=== PATIENT | male | born 1955 | race American Indian/Alaskan Native ===

== ENCOUNTER 2020-12-02 20:59 | Observation (INO) | payer MEDICARE ==
[2020-12-03 00:01] LABS: Basophils % (Auto) 0.3 % (0.0-1.8); Eosinophils % (Auto) 0.5 % (0.0-4.3); Hematocrit 38.2 % (35.5-45.6); Hemoglobin 12.6 gm/dl (11.8-15.2); Lymphocytes # (Auto) 0.6 K/mm3 (1.2-5.4); Lymphocytes % (Auto) 10.1 % (13.4-35.0); Mean Corpuscular HGB Conc 33 % (32-34); Mean Corpuscular Volume 88 fl (84-94); Monocytes # (Auto) 0.4 K/mm3 (0.0-0.8); Monocytes % (Auto) 6.8 % (0.0-7.3); Platelet Count 191 K/mm3 (140-440); Red Blood Count 4.37 M/mm3 (3.65-5.03); Red Cell Distribution Width 14.5 % (13.2-15.2)
[2020-12-03 00:12] LABS: Calcium 9.2 mg/dL (8.4-10.2)
--- NOTE | 2020-12-03 03:13 | Emergency Department Report ---
ED GI Bleed HPI - General Chief complaint: GI Bleed Stated complaint: WEAKNESS/BLOODY STOOL Time Seen by Provider: 12/03/20 03:01 Source: patient, EMS Mode of arrival: Wheelchair Limitations: No Limitations - History of Present Illness Initial comments: Patient is a 65-year-old male who presents emergency room with complaints of lightheadedness, weakness and GI bleed. Patient states she has gross blood and blood clots coming from his rectum. Patient denies melena. Patient denies abdominal pain. Patient denies fever and chills. Patient denies nausea vomiting. Patient states he has had this many years ago. Patient states he has a past medical history of hypertension, vertigo. Patient denies chest pain or shortness of breath. Patient denies recent travel. Patient denies recent international travel. Patient denies exposure to the novel coronavirus. Patient denies sick contacts. Patient denies fever and chills. Patient denies cough. Patient denies diarrhea. Patient denies coming in contact with anybody with symptoms of the novel coronavirus. MD complaint: gross hematochezia -: Sudden Severity scale (0 -10): 0 Quality: painless Consistency: constant Improves with: rest Worsens with: bowel movement Context: history of GI bleed Associated Symptoms: weakness. denies: abdominal pain, nausea, vomiting, epistaxis, fever/chills, headaches, loss of appetite, malaise, easy bruising, rash, other bleeding, shortness of breath - Related Data Allergies Allergy/AdvReac Type Severity Reaction Status Date / Time No Known Allergies Allergy Unverified 12/02/20 23:24 ED Review of Systems ROS: Stated complaint: WEAKNESS/BLOODY STOOL Other details as noted in HPI Constitutional: denies: chills, fever Eyes: denies: eye pain, eye discharge, vision change ENT: denies: ear pain, throat pain Respiratory: denies: cough, shortness of breath, wheezing Cardiovascular: denies: chest pain, palpitations Endocrine: no symptoms reported Gastrointestinal: as per HPI, hematochezia. denies: abdominal pain, nausea, diarrhea Genitourinary: denies: urgency, dysuria Musculoskeletal: denies: back pain, joint swelling, arthralgia Skin: denies: rash, lesions Neurological: as per HPI, weakness, vertigo. denies: headache, paresthesias Psychiatric: denies: anxiety, depression Hematological/Lymphatic: denies: easy bleeding, easy bruising ED Past Medical Hx - Past Medical History Previous Medical History?: Yes Hx Hypertension: Yes Hx Liver Disease: No Hx Renal Disease: No Additional medical history: Vertigo, GI bleed - Surgical History Past Surgical History?: Yes Additional Surgical History: GI bleed - Family History Family history: no significant - Social History Smoking Status: Never Smoker Substance Use Type: None ED Physical Exam - General Limitations: No Limitations General appearance: alert, in no apparent distress - Head Head exam: Present: atraumatic, normocephalic - Eye Eye exam: Present: normal appearance - ENT ENT exam: Present: mucous membranes moist - Neck Neck exam: Present: normal inspection - Respiratory Respiratory exam: Present: normal lung sounds bilaterally. Absent: respiratory distress - Cardiovascular Cardiovascular Exam: Present: regular rate, normal rhythm. Absent: systolic murmur, diastolic murmur, rubs, gallop - GI/Abdominal GI/Abdominal exam: Present: soft, normal bowel sounds. Absent: distended, tenderness, guarding - Rectal Rectal exam: Present: deferred - Extremities Exam Extremities exam: Present: normal inspection - Back Exam Back exam: Present: normal inspection - Neurological Exam Neurological exam: Present: alert, oriented X3 - Psychiatric Psychiatric exam: Present: normal affect, normal mood - Skin Skin exam: Present: warm, dry, intact, normal color. Absent: rash ED Course Vital Signs 12/02/20 23:34 Temperature 98.4 F Pulse Rate 72 Respiratory 20 Rate Blood Pressure 98/54 [Right] O2 Sat by Pulse 96 Oximetry - Reevaluation(s) Reevaluation #1: I discussed all results with patient. I discussed plan of care with patient. Patient agrees with plan of care and admission. Patient to be admitted to the hospitalist service. 12/03/20 03:13 - Consultations Consultation #1: GI consult placed. 12/03/20 03:12 Consultation #2: Hospitalist consulted for admission. Hospitalist to admit patient. 12/03/20 03:12 Consultation #3: Nephrology consult placed. 12/03/20 03:33 ED Medical Decision Making - Lab Data Result diagrams: 12/02/20 23:39 12/02/20 23:39 - Medical Decision Making Patient is a 65-year-old male who presents emergency room with complaints of GI bleed. Patient states he has had multiple blood clots and bright red blood per rectum. Patient also complains of weakness and lightheadedness. Patient denied abdominal pain. Patient had labs done which were essentially unremarkable except for elevated creatinine and BUN. Patient's fractures with renal failure. Patient admitted to the hospital service for further evaluation treatment. GI was consulted. Critical care time documented due to the multiple reassessments, prolonged time at the bedside, interpretation of diagnostics and labs. - Differential Diagnosis GI bleed, renal failure, weakness, lightheadedness Critical Care Time: Yes Critical care time in (mins) excluding proc time.: 35 Critical care attestation.: If time is entered above; I have spent that time in minutes in the direct care of this critically ill patient, excluding procedure time. Critical Care Time: 35 minutes ED Disposition Clinical Impression: Lightheadedness, Weakness, Dehydration Renal failure Qualifiers: Renal failure chronicity: acute Acute renal failure type: unspecified Qualified Code(s): N17.9 - Acute kidney failure, unspecified GI bleed Qualifiers: GI bleed type/associated pathology: unspecified gastrointestinal hemorrhage type Qualified Code(s): K92.2 - Gastrointestinal hemorrhage, unspecified Disposition: DC-09 OP ADMIT IP TO THIS HOSP Is pt being admited?: Yes Does the pt Need Aspirin: No Condition: Critical Forms: Accompanied Note Time of Disposition: 03:40
[2020-12-03] MEDS ORDERED: SODIUM CHLORIDE 0.9% 1000 ML 1,000 ML IV ONE (03:16)
[2020-12-03] MEDS ORDERED: ACETAMINOPHEN 325 MG TAB PO PRN (03:46)
[2020-12-03] MEDS ORDERED: ALBUTEROL 2.5 MG/3 ML NEBU IH PRN (03:46)
[2020-12-03] MEDS ORDERED: HYDROmorphone 1 MG/1 ML INJ IV PRN (03:46)
[2020-12-03] MEDS ORDERED: ONDANSETRON 4 MG/2 ML INJ IV PRN (03:46)
--- NOTE | 2020-12-03 03:54 | History and Physical Report ---
History of Present Illness Date of examination: 12/03/20 Date of admission: 12/03/20 Chief complaint: GI bleed History of present illness: 65-year-old male with history of hypertension and vertigo was brought to the emergency room because of lightheadedness, weakness and GI bleed. Patient states she has gross blood and blood clots coming from his rectum. Patient denies melena. Patient denies abdominal pain. Patient denies fever and chills. Patient denies nausea vomiting. Patient states he has had this many years ago. Patient denies chest pain or shortness of breath. In the emergency room patient hemoglobin is 12.6 and hematocrit 38.2 also patient BUN is 33 creatinine 1.8 Past History Past Medical History: hypertension, other (Vertigo) Medications and Allergies Allergies Allergy/AdvReac Type Severity Reaction Status Date / Time No Known Allergies Allergy Unverified 12/02/20 23:24 Active Meds: Active Medications Sodium Chloride (Nacl 0.9% 1000 Ml) 1,000 mls @ 250 mls/hr IV ONCE ONE Stop: 12/03/20 07:15 Sodium Chloride (Nacl 0.9% 1000 Ml) 1,000 mls @ 999 mls/hr IV BOLUS ONE Stop: 12/03/20 04:16 Review of Systems Gastrointestinal: BRBPR Exam - Constitutional Vitals: Temp Pulse Resp BP Pulse Ox 98.4 F 60 20 98/54 99 12/02/20 23:34 12/03/20 03:31 12/03/20 03:31 12/02/20 23:34 12/03/20 03:33 General appearance: Present: no acute distress, well-nourished - EENT Eyes: Present: PERRL ENT: hearing intact, clear oral mucosa - Neck Neck: Present: supple, normal ROM - Respiratory Respiratory effort: normal Respiratory: bilateral: CTA - Cardiovascular Heart Sounds: Present: S1 & S2. Absent: rub, click - Extremities Extremities: pulses symmetrical, No edema Peripheral Pulses: within normal limits - Abdominal General gastrointestinal: Present: soft, non-tender, non-distended, normal bowel sounds Male genitourinary: Present: normal - Integumentary Integumentary: Present: clear, warm, dry - Musculoskeletal Musculoskeletal: gait normal, strength equal bilaterally - Psychiatric Psychiatric: appropriate mood/affect, intact judgment & insight - Neurologic Neurologic: CNII-XII intact, moves all extremities Results - Labs CBC & Chem 7: 12/02/20 23:39 12/02/20 23:39 Labs: Laboratory Last Values WBC 6.3 K/mm3 (4.5-11.0) 12/02/20 23:39 RBC 4.37 M/mm3 (3.65-5.03) 12/02/20 23:39 Hgb 12.6 gm/dl (11.8-15.2) 12/02/20 23:39 Hct 38.2 % (35.5-45.6) 12/02/20 23:39 MCV 88 fl (84-94) 12/02/20 23:39 MCH 29 pg (28-32) 12/02/20 23:39 MCHC 33 % (32-34) 12/02/20 23:39 RDW 14.5 % (13.2-15.2) 12/02/20 23:39 Plt Count 191 K/mm3 (140-440) 12/02/20 23:39 Lymph % (Auto) 10.1 % (13.4-35.0) L 12/02/20 23:39 [place] % (Auto) 6.8 % (0.0-7.3) 12/02/20 23:39 Eos % (Auto) 0.5 % (0.0-4.3) 12/02/20 23:39 Baso % (Auto) 0.3 % (0.0-1.8) 12/02/20 23:39 Lymph # (Auto) 0.6 K/mm3 (1.2-5.4) L 12/02/20 23:39 [place] # (Auto) 0.4 K/mm3 (0.0-0.8) 12/02/20 23:39 Eos # (Auto) 0.0 K/mm3 (0.0-0.4) 12/02/20 23:39 Baso # (Auto) 0.0 K/mm3 (0.0-0.1) 12/02/20 23:39 Seg Neutrophils % 82.3 % (40.0-70.0) H 12/02/20 23:39 Seg Neutrophils # 5.2 K/mm3 (1.8-7.7) 12/02/20 23:39 Sodium 143 mmol/L (137-145) 12/02/20 23:39 Potassium 4.4 mmol/L (3.6-5.0) 12/02/20 23:39 Chloride 107.5 mmol/L (98-107) H 12/02/20 23:39 Carbon Dioxide 22 mmol/L (22-30) 12/02/20 23:39 Anion Gap 18 mmol/L 12/02/20 23:39 BUN 33 mg/dL (9-20) H 12/02/20 23:39 Creatinine 1.8 mg/dL (0.8-1.3) H 12/02/20 23:39 Estimated GFR 46 ml/min 12/02/20 23:39 BUN/Creatinine Ratio 18 % 12/02/20 23:39 Glucose 128 mg/dL (75-100) H 12/02/20 23:39 Calcium 9.2 mg/dL (8.4-10.2) 12/02/20 23:39 Assessment and Plan VTE prophylaxis?: Mechanical Plan of care discussed with patient/family: Yes - Patient Problems (1) GI bleed Current Visit: Yes Status: Acute Qualifiers: GI bleed type/associated pathology: unspecified gastrointestinal hemorrhage type Qualified Code(s): K92.2 - Gastrointestinal hemorrhage, unspecified Plan to address problem: Admit the patient to the medical telemetry. N.p.o. D5 half-normal saline at the rate of 100 cc/h. Protonix drip 40 mg IV every 12 hours. We do the serial H&H. We also consult GI for further evaluation and treatment. Recheck CBC in the morning (2) BYRON (acute kidney injury) Current Visit: Yes Status: Acute Plan to address problem: Avoid nephrotoxic drug. D5 half-normal saline at the rate of 100 cc/h. Renally dose medication. Nephrology consult repeat BMP in the morning (3) Lightheadedness Current Visit: Yes Status: Acute Plan to address problem: D5 half-normal saline at the rate of 100 cc/h. We will monitor the patient closely (4) Weakness Current Visit: Yes Status: Acute Plan to address problem: D5 half-normal saline at the rate of 100 cc/h. We will continue the home medication we will monitor the patient closely (5) DVT prophylaxis Current Visit: Yes Status: Acute Plan to address problem: SCD for DVT prophylaxis. Protonix 40 mg IV every 12 hours for GI prophylaxis. Patient is a full code
[2020-12-03] MEDS ORDERED: D5W/0.45% NACL 1,000 ML IV SCH (04:00)
[2020-12-03] MEDS: SODIUM CHLORIDE 0.9% 1000 ML 1,000 ML IV ONE ×2 (04:10→05:46)
[2020-12-03] MEDS: oxyCODONE /ACETAMINOPHEN 5-325MG TAB PO PRN ×2 (05:50→13:58)
[2020-12-03] MEDS: IPRATROPIUM/ALBUTEROL SULFATE 3 ML AMPUL.NEB IH SCH ×2 (08:00→13:36)
--- NOTE | 2020-12-03 08:02 | Consultation ---
History of Present Illness - Reason for Consult Consult date: 12/03/20 acute renal failure - History of Present Illness Mr. Maher is a 65-year-old male who presents emergency room with complaints of lightheadedness, weakness and GI bleed. Patient states she has gross blood and blood clots coming from his rectum. Patient denies melena. Patient denies abdominal pain. Patient denies fever and chills. Patient denies nausea vomiting. He reports that on prior visits with PCP, he was advised that he has abnormal renal function but details are unknown. He denies NSAID use. He denies he maturia, epistaxis, hemoptysis. He denies a family history of kidney disease. Past History Past Medical History: hypertension, other (Vertigo) Medications and Allergies Allergies Allergy/AdvReac Type Severity Reaction Status Date / Time No Known Allergies Allergy Verified 12/03/20 03:55 Active Meds: Active Medications Acetaminophen (Acetaminophen 325 Mg Tab) 650 mg PO Q4H PRN PRN Reason: Pain MILD(1-3)/Fever >100.5/LOPEZ Albuterol (Albuterol 2.5 Mg/3 Ml Nebu) 2.5 mg IH Q4HRT PRN PRN Reason: Shortness Of Breath Albuterol/Ipratropium (Ipratropium/Albuterol Sulfate 3 Ml Ampul.Neb) 1 ampul IH Q6HRT [facility] Last Admin: 12/03/20 08:00 Dose: 1 ampul Documented by: Hydromorphone HCl (Hydromorphone 1 Mg/1 Ml Inj) 0.5 mg IV Q3H PRN PRN Reason: Pain , Severe (7-10) Dextrose/Sodium Chloride (D5/0.45ns) 1,000 mls @ 100 mls/hr IV DIRECT NOEMI Ondansetron HCl (Ondansetron 4 Mg/2 Ml Inj) 4 mg IV Q8H PRN PRN Reason: Nausea And Vomiting Oxycodone/Acetaminophen (Oxycodone /Acetaminophen 5-325mg Tab) 1 tab PO Q6H PRN PRN Reason: Pain, Moderate (4-6) Last Admin: 12/03/20 05:50 Dose: 1 tab Documented by: Pantoprazole Sodium (Pantoprazole 40 Mg Inj) 40 mg IV BID [facility] Sodium Chloride (Sodium Chloride 0.9% 10 Ml Flush Syringe) 10 ml IV BID NOEMI Sodium Chloride (Sodium Chloride 0.9% 10 Ml Flush Syringe) 10 ml IV PRN PRN PRN Reason: LINE FLUSH Review of Systems All systems: negative Exam - Vital Signs Vital signs: Vital Signs Temp Pulse Resp BP Pulse Ox 98.4 F 72 20 98/54 96 12/02/20 23:34 12/02/20 23:34 12/02/20 23:34 12/02/20 23:34 12/02/20 23:34 - General Appearance General appearance: well-developed, well-nourished EENT: ATNC Neck: Present: neck supple Respiratory: Clear to Ascultation Heart: regular, S1S2 Gastrointestinal: Present: normal. Absent: tenderness, distended Integumentary: no rash, warm and dry Neurologic: no focal deficit, alert and oriented x3 Psychiatric: cooperative Results - Lab Results 12/03/20 09:35 12/03/20 09:22 Most recent lab results Calcium 9.2 mg/dL (8.4-10.2) 12/02/20 23:39 Assessment and Plan Impression: * Acute kidney injury vs underlying CKD * Hematochezia * Relative hypotension (hx of hypertension per records) Plan: * Patient reports dx of renal dysfunction in the past by his PCP - baseline renal function is unknown. Will attempt to obtain records. * No indication for renal replacement therapy at this time * Will obtain work up - renal u/s, UA, urine protein:creatinine ratio * GI consultation pending * Dose medications for renal function * Avoid potential nephrotoxins * AM labs
--- NOTE | 2020-12-03 08:23 | Progress Note ---
Assessment and Plan - Patient Problems (1) BYRON (acute kidney injury) Current Visit: Yes Status: Acute Plan to address problem: Secondary to prerenal azotemia. Patient has not been eating or drinking well. Will correct with gentle IV hydration. Avoid nephrotoxic agents. Low-sodium diet. (2) Dehydration Current Visit: Yes Status: Acute Plan to address problem: Resolving with IV volume hydration. (3) GI bleed Current Visit: Yes Status: Acute Qualifiers: GI bleed type/associated pathology: unspecified gastrointestinal hemorrhage type Qualified Code(s): K92.2 - Gastrointestinal hemorrhage, unspecified Plan to address problem: Currently no active bleeding hemoglobin hematocrit stable. Await any GI recommendations. Follow-up serial H&H transfuse hemoglobin less than 7. (4) Weakness Current Visit: Yes Status: Acute Plan to address problem: Resolving patient back to baseline now. Subjective Date of service: 12/03/20 Principal diagnosis: GI bleed Interval history: 65-year-old male with a history of hypertension presents with gross rectal bleeding no melena. No abdominal pain. Patient did complain of some weakness and dizziness which is since resolved. No further bleeding at this time H&H was 12 and 38 upon admission. Patient at present feels good no further has dizziness hungry. No further bleeding. Patient states that his happened 1 time long time ago. Patient has had colonoscopy over 15 years ago. Abdominal pain no diarrhea no fever chills no nausea vomiting. Objective - Constitutional Vitals: Vital Signs - 12hr 12/02/20 12/03/20 12/03/20 23:34 03:31 03:33 Temperature 98.4 F Pulse Rate 72 60 Respiratory 20 20 Rate Blood Pressure Blood Pressure 98/54 [Right] O2 Sat by Pulse 96 98 99 Oximetry 12/03/20 12/03/20 12/03/20 03:46 04:00 04:16 Temperature Pulse Rate 60 69 57 L Respiratory 13 13 12 Rate Blood Pressure 104/70 111/60 111/60 Blood Pressure [Right] O2 Sat by Pulse 99 98 97 Oximetry 12/03/20 12/03/20 12/03/20 04:30 04:46 05:00 Temperature Pulse Rate 63 88 68 Respiratory 14 18 12 Rate Blood Pressure 111/60 111/60 100/53 Blood Pressure [Right] O2 Sat by Pulse 100 100 100 Oximetry 12/03/20 12/03/2021 05:16 05:30 05:46 Temperature Pulse Rate 69 68 68 Respiratory 18 18 20 Rate Blood Pressure 100/53 100/53 100/53 Blood Pressure [Right] O2 Sat by Pulse 97 96 96 Oximetry 12/03/20 12/03/20 06:00 07:33 Temperature Pulse Rate 66 88 Respiratory 18 19 Rate Blood Pressure 112/48 Blood Pressure 110/85 [Right] O2 Sat by Pulse 96 99 Oximetry General appearance: Present: no acute distress, well-nourished - EENT Eyes: PERRL, EOM intact ENT: hearing intact, clear oral mucosa Ears: bilateral: normal - Neck Neck: supple, normal ROM - Respiratory Respiratory effort: normal Respiratory: bilateral: CTA - Breasts Breasts: normal - Cardiovascular Rhythm: regular Heart Sounds: Present: S1 & S2. Absent: gallop, rub Extremities: pulses intact, No edema, normal color, Full ROM - Gastrointestinal General gastrointestinal: Present: soft, non-tender, non-distended, normal bowel sounds - Genitourinary Male genitourinary: normal - Integumentary Integumentary: clear, warm, dry - Musculoskeletal Musculoskeletal: 1, strength equal bilaterally - Neurologic Neurologic: moves all extremities - Psychiatric Psychiatric: memory intact, appropriate mood/affect, intact judgment & insight - Labs CBC & Chem 7: 12/03/20 09:35 12/03/20 09:22 Labs: Abnormal lab results 12/02/20 12/02/20 Range/Units 23:39 23:39 Lymph % (Auto) 10.1 L (13.4-35.0) % Lymph # (Auto) 0.6 L (1.2-5.4) K/mm3 Seg Neutrophils % 82.3 H (40.0-70.0) % Chloride 107.5 H (98-107) mmol/L BUN 33 H (9-20) mg/dL Creatinine 1.8 H (0.8-1.3) mg/dL Glucose 128 H (75-100) mg/dL
[2020-12-03 09:43] LABS: Basophils % (Auto) 0.7 % (0.0-1.8); Eosinophils # (Auto) 0.1 K/mm3 (0.0-0.4); Eosinophils % (Auto) 1.6 % (0.0-4.3); Hematocrit 35.5 % (35.5-45.6); Hemoglobin 11.5 gm/dl (11.8-15.2); Lymphocytes # (Auto) 1.6 K/mm3 (1.2-5.4); Lymphocytes % (Auto) 28.4 % (13.4-35.0); Mean Corpuscular HGB Conc 33 % (32-34); Mean Corpuscular Volume 89 fl (84-94); Monocytes # (Auto) 0.7 K/mm3 (0.0-0.8); Monocytes % (Auto) 13.3 % (0.0-7.3); Platelet Count 146 K/mm3 (140-440); Red Blood Count 3.99 M/mm3 (3.65-5.03); Red Cell Distribution Width 14.6 % (13.2-15.2)
[2020-12-03] MEDS: PANTOPRAZOLE 40 MG INJ IV SCH ×2 (09:47→22:53)
[2020-12-03 10:01] LABS: BUN/Creatinine Ratio 21; Blood Urea Nitrogen 30 mg/dL (9-20); Calcium 8.5 mg/dL (8.4-10.2); Hemolysis Index 2
--- NOTE | 2020-12-03 13:18 | Ultrasound Report ---
ULTRASOUND RENAL INDICATION / CLINICAL INFORMATION: BYRON. COMPARISON: None available. FINDINGS: RIGHT KIDNEY: Length = 9.3 cm. [normal > 9 cm] - Parenchymal Thickness = 1.2 cm. [normal > 1.5 cm] - Echogenicity: Increased - Hydronephrosis: None. - Cyst or mass: 1.7 cm cyst near the inferior pole. - Stones: None seen. LEFT KIDNEY: Length = 10.2 cm. [normal > 9 cm] - Parenchymal Thickness = 0.0 cm. [normal > 1.5 cm] - Echogenicity: Increased - Hydronephrosis: None. - Cyst or mass: No significant abnormality. - Stones: None seen. URINARY BLADDER: No significant abnormality. FREE FLUID: None. ADDITIONAL FINDINGS: None. IMPRESSION: Slightly echogenic kidneys consistent with medical renal disease. 1.7 cm right renal cyst. No hydron ephrosis. Signer Name: Sridhar Chen Jr, MD Signed: 12/03/2020 1:13 PM Workstation Name: [id number]
[2020-12-03] MEDS ORDERED: WATER FOR IRRIG STERILE 1,000 ML BOTTLE ONE (14:03)
[2020-12-03] MEDS ORDERED: WATER FOR IRRIG STERILE 250 ML BOTTLE IR ONE (14:03)
[2020-12-03] MEDS ORDERED: SODIUM CHLORIDE 0.9% 1000 ML 1,000 ML ONE (14:11)
[2020-12-03] MEDS ORDERED: ONDANSETRON 4 MG/2 ML INJ ONE (14:32)
[2020-12-03] MEDS ORDERED: LIDOCAINE MPF (2%) 20 MG/1 ML VIAL 5 ML ONE (14:32)
[2020-12-03] MEDS ORDERED: propofoL 200 MG/20 ML VIAL IV ONE (14:33)
[2020-12-03] MEDS ORDERED: fentaNYL 100 MCG/2 ML INJ ONE (14:33)
--- NOTE | 2020-12-03 14:35 | Anesthesia Day of Surgery ---
Anesthesia Day of Surgery - Day of Surgery Patient Examined: Yes Patient H&P Reviewed: Yes Patient is NPO: Yes
--- NOTE | 2020-12-03 14:37 | Anesthesia Consultation ---
Anesthesia Consult and Med Hx Date of service: 12/03/20 - Airway Anesthetic Teeth Evaluation: Dentures (Upper), Edentulous (Upper) ROM Head & Neck: Adequate Mental/Hyoid Distance: Adequate Mallampati Class: Class II Intubation Access Assessment: Good - Pre-Operative Health Status ASA Pre-Surgery Classification: ASA2, Emergency Proposed Anesthetic Plan: MAC - Pulmonary Hx Smoking: No - Cardiovascular System Hx Hypertension: Yes - Gastrointestinal Hx Ulcer: No (GI bleed) - Endocrine Hx Renal Disease: Yes (Elevated Cr. ?Prerenal vs. CRI) Hx Liver Disease: No
--- NOTE | 2020-12-03 14:57 | Post Operative Note ---
Pre-op diagnosis: gi bleed Post-op diagnosis: same Findings: EGD: hiatal hernia - nodules x 3 gastric body (bx's) - 2 small white based ulcers antrum 4-5 mm w/o bleeding stigmata, doubt bleeding source, bx's - negative other Flex sig: brown stool to sigmoid colon - avm's rectum - internal hemorrhoids - negative other Procedure: EGD/flex sig Anesthesia: MAC Surgeon: MK TOVAR Estimated blood loss: none Pathology: list Specimen disposition: to lab Condition: stable Disposition: floor
--- NOTE | 2020-12-03 15:16 | Operative Report ---
DATE OF SURGERY: 12/03/2020 INDICATION: 1. Rectal bleeding. 2. Anemia. MEDICATIONS: Propofol per QUILT SEWER. COMPLICATION: None. DESCRIPTION OF PROCEDURE: The patient was brought to the procedure suite. The patient had the procedure discussed with him at length. All risks, complications, and benefits were discussed, after which the patient signed for the procedure performed. The patient was placed in left lateral decubitus position. Rectal exam performed prior to insertion of the scope. After adequate sedation with medications as above, scope inserted into the rectum and brought to the level of the distal descending colon. Retroflexion view was performed. The patient's vital signs remained stable throughout the procedure. FINDINGS: There was an unprepped procedure, so very poor prep. No mass lesions, polyps or significant diverticulosis was noted in the area visualized. It should be noted that scope was noted to go through the sigmoid colon, but not fully visualized. Only brown stool was noted and no bright red or other signs of bleeding was noted. There were noted to be AVMs without bleeding stigmata noted in the rectum as well as medium internal hemorrhoids. These were the possible source of bleeding, but no stigmata of bleeding was noted at this time and no interventions were performed. The patient otherwise tolerated the procedure well. No complications during this procedure. IMPRESSION: 1. Brown stool without signs of bleeding. 2. ___ left side of the colon was visualized. 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 4. Internal hemorrhoids. 5. No signs of active bleeding at this time. RECOMMENDATIONS: 1. Follow hematocrit and transfuse as needed. 2. PPI daily. 3. Advance diet as tolerated. 4. If stable overnight, okay to discharge from GI standpoint. TID: [id number] RECEIPT: [id number] CAB/SABRINA
--- NOTE | 2020-12-03 15:48 | Post Anesthesia Evaluation ---
- Post Anesthesia Evaluation Patient Participated: Yes Airway Patent: Yes Stable Respiratory Function: Yes Nausea/Vomiting: No Temp > 96.8F: Yes Pain Manageable: Yes Adequeate Hydration: Yes Anesthesia Complications: No Block Receding Appropriately: Not Applicable Patient on Ventilator: No
--- NOTE | 2020-12-03 15:59 | Operative Report ---
DATE OF SURGERY: 12/03/2020 PROCEDURE: EGD with cold biopsy. INDICATIONS: 1. Rectal bleeding. 2. Anemia. MEDICATIONS: Propofol per [employer]. COMPLICATIONS: None. DESCRIPTION OF PROCEDURE: The patient was brought to the procedure suite. The patient had the procedure discussed with him at length. All risks, complications, and benefits were discussed, after which the patient signed for the procedure was performed. The patient was placed in left lateral decubitus position. Mouth block placed in the patient's oral cavity. After adequate sedation with medications as above, the endoscope was placed in the mouth and brought to the level of the second portion of duodenum. Retroflexion view performed. The patient's vital signs remained stable throughout the procedure. FINDINGS: There was noted to be a small hiatal hernia at the GE junction 40 cm from the gums. The esophagus otherwise appeared to be normal. There were two small shallow white based ulcers, 4-5 mm noted in the antrum with biopsies taken and sent to pathology. No stigmata of bleeding was noted from these ulcers and doubt these were the source of bleeding. There were three 6-7 mm raised nodules noted in the gastric body along the mid to distal lesser curvature. Biopsies were taken to rule out adenoma. No other pathology. The remaining stomach otherwise appeared to be normal. Duodenum appeared to be normal. Retroflexion view performed in the stomach showed no other pathology other than noted above. The patient tolerated the procedure well. No complications noted during this procedure. IMPRESSION: 1. Hiatal hernia. 2. Otherwise, normal esophagus. 3. Small shallow ulcers in the antrum, a biopsy performed. Doubt these were a source of bleeding. 4. Nodules x 3 in the gastric body with biopsies performed. 5. Otherwise, normal esophagogastroduodenoscopy. RECOMMENDATIONS: 1. Follow up biopsy results. 2. If Helicobacter pylori positive, we will treat. 3. PPI daily. 4. Flexible sigmoidoscopy to follow. Further recommendation based on results. TID: [id number] RECEIPT: [id number] [facility]/ROBERTA/FELICIA
[2020-12-04 06:10] LABS: Basophils % (Auto) 0.3 % (0.0-1.8); Eosinophils # (Auto) 0.1 K/mm3 (0.0-0.4); Eosinophils % (Auto) 2.1 % (0.0-4.3); Hematocrit 36.4 % (35.5-45.6); Hemoglobin 11.9 gm/dl (11.8-15.2); Lymphocytes # (Auto) 1.2 K/mm3 (1.2-5.4); Lymphocytes % (Auto) 24.7 % (13.4-35.0); Mean Corpuscular HGB Conc 33 % (32-34); Mean Corpuscular Volume 89 fl (84-94); Monocytes # (Auto) 0.6 K/mm3 (0.0-0.8); Monocytes % (Auto) 11.8 % (0.0-7.3); Platelet Count 142 K/mm3 (140-440); Red Blood Count 4.07 M/mm3 (3.65-5.03); Red Cell Distribution Width 14.6 % (13.2-15.2)
[2020-12-04 06:23] LABS: BUN/Creatinine Ratio 18; Blood Urea Nitrogen 21 mg/dL (9-20); Hemolysis Index 1
--- NOTE | 2020-12-04 08:44 | Discharge Summary ---
Providers - Providers Date of Admission: 12/03/20 03:14 Date of discharge: 12/04/20 Attending physician: GANESH MONTEIRO 12/03/20 03:32 Consult to Physician [CONS] Routine Comment: Consulting Provider: MIC SUAREZ Physician Instructions: Reason For Exam: gi bleed Consult to Physician [CONS] Routine Comment: Consulting Provider: JOHN ORTEGA Physician Instructions: Reason For Exam: arf Hospitalization Condition: Good Procedures: EGD which showed hiatal hernia as well as nodules x3 there were biopsied. White ulcers nonbleeding. Colonoscopy which showed internal hemorrhoids. Hospital course: Patient admitted for acute GI blood loss anemia stabilized hemoglobin hematocrit. No abdominal pain. Patient had EGD and colonoscopy. Findings were consistent with internal hemorrhoids was most likely cause of bleeding. H&H stabilized patient stable for discharge home follow-up with GI and primary care physician 7 to 14 days. Disposition: TO HOME OR SELFCARE Final Discharge Diagnosis (Prints w/discharge instructions): Acute GI blood loss anemia - Discharge Diagnoses (1) BYRON (acute kidney injury) Status: Acute (2) Dehydration Status: Acute (3) GI bleed Status: Acute Qualifiers: GI bleed type/associated pathology: unspecified gastrointestinal hemorrhage type Qualified Code(s): K92.2 - Gastrointestinal hemorrhage, unspecified (4) Weakness Status: Acute Core Measure Documentation - Palliative Care Palliative Care/ Comfort Measures: Not Applicable - Core Measures Any of the following diagnoses?: none Exam - Constitutional Vitals: Temp Pulse Resp BP Pulse Ox 98.0 F 83 18 111/51 93 12/04/20 03:51 12/04/20 04:25 12/04/20 03:51 12/04/20 03:51 12/04/20 03:51 General appearance: Present: no acute distress, well-nourished - EENT Eyes: Present: PERRL ENT: hearing intact, clear oral mucosa - Neck Neck: Present: supple, normal ROM - Respiratory Respiratory effort: normal Respiratory: bilateral: CTA - Cardiovascular Heart Sounds: Present: S1 & S2. Absent: rub, click - Extremities Extremities: pulses symmetrical, No edema Peripheral Pulses: within normal limits - Abdominal General gastrointestinal: Present: soft, non-tender, non-distended, normal bowel sounds Male genitourinary: Present: normal - Integumentary Integumentary: Present: clear, warm, dry - Musculoskeletal Musculoskeletal: gait normal, strength equal bilaterally - Psychiatric Psychiatric: appropriate mood/affect, intact judgment & insight - Neurologic Neurologic: CNII-XII intact, moves all extremities Plan Activity: no restrictions Weight Bearing Status: Full Weight Bearing Diet: low cholesterol Follow up with: CLIFF [facility] [Other] - 7 Days Forms: Accompanied Note
[2020-12-04 09:24] VITALS: BP 107/53
[2020-12-04] MEDS: PANTOPRAZOLE 40 MG INJ IV SCH (09:28)
--- NOTE | 2020-12-04 10:03 | Consultation ---
DATE OF CONSULTATION: 12/03/2020 REFERRING PHYSICIAN: Shubham Forbes MD INDICATION: Rectal bleeding. HISTORY: The patient is a 65-year-old male with a history of hypertension, vertigo, who presents for GI bleeding. The patient reports recent general weakness and lightheadedness. The patient reports since that time overnight, he has had multiple bouts of bright red maroon clots. He denies any melena. He denies any hematemesis. He does report some GERD and epigastric pain. He denies any weight loss or anemia. The patient subsequently was admitted and GI consulted. Denies any history of GI bleed in the past. PAST MEDICAL HISTORY: Hypertension and vertigo. MEDICATIONS: Reviewed and updated in chart. ALLERGIES: No known drug allergies. SOCIAL HISTORY: Denies alcohol, tobacco or drug abuse. FAMILY HISTORY: No history of colon cancer, IBD, or liver disease. REVIEW OF SYSTEMS: GENERAL: Positive weakness. HEENT: Denies visual complaints or tinnitus. PULMONARY: Denies short of breath and chest pain. GASTROINTESTINAL: Reports rectal bleeding. All points of 10-point review of systems otherwise negative. PHYSICAL EXAMINATION: VITAL SIGNS: Temperature of 98.7, pulse 89, respirations 19, and blood pressure 131/91. GENERAL: Fairly nourished male in no acute distress. HEENT: Pupils round and reactive. PULMONARY: Clear to auscultation bilaterally. CARDIOVASCULAR: Regular rate and rhythm, normal S1, S2. ABDOMEN: Positive bowel sounds, soft. SKIN: No obvious rashes. LABORATORY DATA: Pertinent for white count of 5.5, hemoglobin and hematocrit of 11.5 and 35.5, platelet count of 146. Chem-7 within normal limits except for BUN and creatinine of 30 and 1.4. LFTs within normal limits. ASSESSMENT: A 65-year-old male with past medical history noted above, now with signs and symptoms of GI bleed with rectal bleeding of bright red and maroon stools. The patient does have some GERD and epigastric pain upper and lower gastrointestinal source. PLAN: 1. Follow hematocrit and transfuse as needed. 2. PPI IV b.i.d. 3. N.p.o. 4. Plan EGD with flexible sigmoidoscopy today. 5. Follow up with further recommendations based on progress and results of the above. TID: [id number] RECEIPT: [id number] [facility]/BRENDAN/CARL
--- NOTE | 2020-12-04 10:08 | Gastroenterology Progress Note ---
Assessment and Plan 1. GI: pt stable overnight w/o signs bleeding - h/h stable - diet as tolerated - ok to dc from GI standpoint - will sign off, call if needed Subjective Date of service: 12/04/20 Principal diagnosis: GI bleed Interval history: - no signs bleeding overnight Objective - Constitutional Vitals: Temp Pulse Resp BP Pulse Ox 96.7 F L 94 H 18 107/53 96 12/04/20 07:32 12/04/20 09:02 12/04/20 09:02 12/04/20 09:02 12/04/20 09:41 General appearance: no acute distress - EENT Eyes: PERRL - Respiratory Respiratory: bilateral: CTA - Cardiovascular Rhythm: regular Heart Sounds: Present: S1 & S2 - Gastrointestinal General gastrointestinal: Present: soft, non-tender, non-distended - Labs CBC & Chem 7: 12/04/20 05:23 12/04/20 05:23 Labs: Laboratory Results - last 24 hr 12/03/20 12/04/20 12/04/20 09:22 05:23 05:23 WBC 4.7 RBC 4.07 Hgb 11.9 Hct 36.4 MCV 89 MCH 29 MCHC 33 RDW 14.6 Plt Count 142 Lymph % (Auto) 24.7 [place] % (Auto) 11.8 H Eos % (Auto) 2.1 Baso % (Auto) 0.3 Lymph # (Auto) 1.2 [place] # (Auto) 0.6 Eos # (Auto) 0.1 Baso # (Auto) 0.0 Seg Neutrophils % 61.1 Seg Neutrophils # 2.9 Sodium 145 143 Potassium 3.7 4.1 Chloride 111.7 H 107.9 H Carbon Dioxide 22 25 Anion Gap 15 14 BUN 30 H 21 H Creatinine 1.4 H 1.2 Estimated GFR > 60 BUN/Creatinine Ratio 18 Glucose 95 89 Calcium 8.5 9.0
== END 2020-12-04 13:03 | disposition home or self-care (01) ==
LOC: ED 20:59 → 3A 12-03 03:14 → 4A 12-03 20:36
PROVIDERS: ADMIT Hospitalist; ATTEND Internal Medicine
DX: K92.2 Gastrointestinal hemorrhage, unspecified (principal); N17.9 Acute kidney failure, unspecified; I10 Essential (primary) hypertension; E86.0 Dehydration; I95.9 Hypotension, unspecified; D64.9 Anemia, unspecified; K92.1 Melena; R42 Dizziness and giddiness; R53.1 Weakness; R06.02 Shortness of breath
CPT/HCPCS: 36415; 43239; 76770; 80048; 85025; 88305; 88342; 94640; 94644; 96361; 96374; 96376; 99291; C9113; G0378; J2405; J2704; J3010; J7030

== ENCOUNTER 2021-05-15 18:40 | Emergency (ER) | payer MEDICARE ==
[2021-05-15] MEDS ORDERED: SODIUM CHLORIDE 0.9% 1000 ML 1,000 ML ONE (18:45)
--- NOTE | 2021-05-15 19:00 | Emergency Department Report ---
HPI - General Chief Complaint: Cardiac Arrest/CPR Time Seen by Provider: 05/15/21 18:59 - HPI HPI: 65-year-old male with unknown medical history brought in by EMS after a witnessed cardiac arrest. The patient was reportedly at a convenience store when he collapsed. He was found by bystanders to be pulseless and CPR was started. When EMS arrived, the patient was in ventricular fibrillation. He was defibrillated x2. ACLS protocol was followed and the patient was intubated using a 7-0 endotracheal tube with subsequent end-tidal of 20. m the patient was given multiple doses of epinephrine and 1 dose of bicarb. His rhythm changed to PEA and then asystole. Patient has a IO in the left tibia. His fingerstick blood glucose was 76. Further details of the HPI are limited due to the current clinical condition. ED Past Medical Hx - Past Medical History Hx Hypertension: Yes Hx GERD: Yes Hx Liver Disease: No Hx Renal Disease: Yes (Elevated Cr. ?Prerenal vs. CRI) Additional medical history: Vertigo, GI bleed - Surgical History Additional Surgical History: GI bleed - Social History Smoking Status: Current Every Day Smoker ED Review of Systems ROS: Stated complaint: CARDIAC ARREST Other details as noted in HPI Comment: Unobtainable due to pts medical conditions Physical Exam - Physical Exam Physical Exam: GENERAL: Well developed. Obtunded and unresponsive HEAD: Normocephalic. Contusion noted to the posterior occiput ENT: Dry mucous membranes. Endotracheal tube in place with appropriate condensation. EYES: Pupils are midsized and unreactive. NECK: Trachea is midline. LUNGS: Bilateral breath sounds with bag valve ventilation CARDIOVASCULAR: Zeke device in place performing chest compressions VASCULAR: Pulseless. Strong femoral pulse with chest compressions. ABDOMEN: Abdomen is soft and nondistended. SKIN: Skin is cool and dry NEURO: Unresponsive. MUSCULOSKELETAL: No obvious deformities. ED Medical Decision Making - Medical Decision Making 65-year-old male brought in by EMS in cardiac arrest after he was witnessed by bystanders collapsing at convenience store. His initial rhythm was V. fib and despite being defibrillated he remained pulseless. Patient was intubated in the field. He was given epi and bicarb per ACLS protocol. Upon arrival to our emergency department, the patient's initial rhythm shows PEA. Physical examination reveals a contusion to the posterior occiput. ACLS protocol was followed and the patient was given multiple doses of epinephrine, magnesium, calcium, amiodarone, and bicarbonate. Bedside FAST exam was performed and was negative. Bedside ultrasound of the heart shows no cardiac activity. Despite our resuscitative efforts, the patient never regained a pulse. Time of was called at 1857 Critical care attestation.: If time is entered above; I have spent that time in minutes in the direct care of this critically ill patient, excluding procedure time. ED Disposition Clinical Impression: Cardiac arrest, Head injury Disposition: 20 Is pt being admited?: No
== END 2021-05-16 00:44 ==
LOC: ED 18:40
DX: I46.9 Cardiac arrest, cause unspecified (principal); S09.90XA Unspecified injury of head, initial encounter; I10 Essential (primary) hypertension; K21.9 Gastro-esophageal reflux disease without esophagitis; Z98.890 Other specified postprocedural states; F17.200 Nicotine dependence, unspecified, uncomplicated; W19.XXXA Unspecified fall, initial encounter; Y93.89 Activity, other specified; Y92.89 Other specified places as the place of occurrence of the external cause; Y99.8 Other external cause status
CPT/HCPCS: 99284; J7030; 99285; Q0162